=== PATIENT | female | born 2005 | race Caucasian/White ===

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

== ENCOUNTER 2025-08-11 12:49 | Outpatient (CLI) | payer OTHER, SELFPAY ==
--- NOTE | ~2025-08-11 | US_ITS ---
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 Findings: Uterus: Uterus anteverted 7.1 x 3.1 x 5.3 cm. . Endometrium 1 cm. Right Ovary:Right ovary 3.4 x 2.6 x 4.3 cm, no adnexal mass, normal flow. Left Ovary: Left ovary 3.6 x 1.9 x 2.3 cm no adnexal mass, normal flow. Free Fluid: None Impression: Unremarkable exam Reviewed, dictated and finalized at location P. CIL SPRAYER Impression: Unremarkable exam
== END 2025-08-11 12:50 | disposition home or self-care (01) ==
PROVIDERS: Visit Provider Student in an Organized Health Care Education/Training Program
DX: E28.2 Polycystic ovarian syndrome (principal)
CPT/HCPCS: 76830; 76856

== ENCOUNTER 2025-08-17 13:09 | Outpatient (CLI) | payer OTHER, SELFPAY ==
[2025-08-17 14:20] LABS: Thyroid Stimulating Hormone 2.610 uIU/mL (0.465-4.680)
--- OUTSIDE RECORDS SUMMARY | 2025-08-17 14:53 | XMS_ITS | Clinical Summary ---
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 Name Role Phone Tiny Gaytan Primary Care Provider [phone] No, Physician Unavailable Robbie Tanner MD Unavailable [phone] Allergies No known active allergies Medications magnesium oxide 400 mg magnesium tablet Take 400 mg by mouth daily Active dicyclomine (BENTYL) 10 mg capsule Take 1 capsule (10 mg total) by mouth 4 (four) times a day as needed 5 Active ondansetron ODT (ZOFRAN-ODT) 4 mg disintegrating tablet Take 1 tablet (4 mg total) by mouth every 6 (six) hours as needed 4 Active Active Problems Problem Noted Date Diagnosed Date Sleep disorder 09/24/2023 Low ferritin 08/15/2023 Underweight 11/29/2022 Vitamin D deficiency 12/01/2021 Anxiety 11/22/2021 Migraine 11/22/2021 Painful menstruation 11/22/2021 Immunizations Immunization Administration Dates Next Due DTaP 02/24/2009, 5,2004,04/01 HPV, Unspecified 06/14/2018 HPV9 11/16/2021 Hep A, Pediatric 02/12/2007,06/04/2006 Hep B, Adolescent or Pediatric 05/28/2019,2004,2004 Hib (PRP-T) 02/24/2009, 5,2004,04/01 IPV 02/24/2009, 5,2004,04/01 Influenza, Quadrivalent, Spl it, Preservative Free, Intramuscular 06/28/2020 MMR 02/24/2009,01/30/2005 Meningococcal MCV4P (Menactra) 11/16/2021,2015 Pneumococcal Conjugate PCV 13 01/30/2005 ,2004,2004,04/01 Tdap 05/10/2016 Varicella 02/24/2009,04/03/2005 Surgical History Surgery Date Site/Laterality Comments WISDOM TOOTH EXTRACTION 03/27/2024 - 04/26/2024 Medical History Medical History Date Comments Abdominal bloating Family History Medical History Relation Name Comments Arthritis Other 1 Blood Clot Other 1 Cancer Other 1 Diabetes Other 1 Gout Other 1 Heart disease Other 1 Hypertension Other 1 Stroke Other 1 Arthritis Other 2 Cancer Other 2 Gout Other 2 Heart disease Other 2 Hypertension Other 2 Stroke Other 2 Relation Name Status Comments Other 1 Other 2 Social History Tobacco Use Types Packs/Day Years Used Date Smoking Tobacco: Never Smokeless Tobacco: Never Tobacco Cessation:Counseling Given: Not Answered Alcohol Use Standard Drinks/Week Comments Never 0 (1 standard drink = 0.6 oz pur e alcohol) AUDIT-C Answer Date Recorded Q1: How often do you have a drink containing alc ohol? Never 07/15/2020 Average Number of Drinks Not on file 020 Frequency of Binge Drinking Not on file 06/27 Comments Unknown Sex and Gender Information Value Date Recorded Sex Assigned at Not on file Legal Sex Female 1:28 PM CDT Gender Identity Not on file Sexual Orientation Not on file Last Filed Vital Signs Vital Sign Reading Time Taken Comments Blood Pressure 104/58 10/31/2023 3:45 PM PACKER [facility] Pulse 84 10/31/2023 3:45 PM [facility] [employer] Temperature 37.1 C (98.8 F) 10/31/2023 3:45 PM [facility] Respiratory Rate 16 10/31/2023 3:45 PM [facility] Oxygen Saturation 99% 10/31/2023 3:45 PM [facility] Inhaled Oxygen Concentration - - Weight 47.6 kg (105 lb) 10/31/2023 3:45 PM [facility] Height 170.2 cm (5' 7) 10/31/2023 3:45 PM [facility] Body Mass Index 16.45 10/31/2023 3:45 PM P[facility]ER DENTURE Plan of Treatment Health Maintenance Due Date Last Done Comments Cervical Cancer Screening 2004 Depression Screening 2004 Hepatitis C Screening 2004 Meningococcal B Vaccine (1 o f 2 - Standard) 2020 Regular Well Visit/Exam 18-64 01/28/2022 Covid-19 Vaccine (4 - 2024-2 6 season) 2025 08/23/2021, 12/19/2020, 11/27/2020 Influenza Vaccine (#1) 2025 08/14/2023, 2019 DTaP/Tdap/Td Vaccine (6 - Td or Tdap) 05/10/2026 05/10/2016, 02/24/2009, 2004, Additional history exists Pneumococcal vaccine <65 Completed 005, 2004, 2004, Additional history exists Varicella Vaccines Completed 02/24/2009, 04/03/2005 Hepatitis B Screening Completed 05/28/2019 , 2004, 2004 HPV Vaccines Completed 11/16/2021, 06/14/2018 Meningococcal Vaccine Completed 11/16/2021, 016 Insurance [facility] H[facility] [employer] PPO [employer] Care Teams 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
[2025-08-18 07:08] LABS: FSH 3.3 mIU/mL (.)
[2025-08-18 10:49] LABS: Beta HCG Quantitative < 2.39 mIU/ML
[2025-08-19 13:08] LABS: Free Testosterone (Direct) 2.5 pg/mL (0.0-4.2)
[2025-08-23 19:07] LABS: Estradiol, Sensitive 129.4 pg/mL (.)
== END 2025-08-17 13:10 | disposition home or self-care (01) ==
PROVIDERS: Obstetrics & Gynecology; Visit Provider Student in an Organized Health Care Education/Training Program
DX: N91.2 Amenorrhea, unspecified (principal)
CPT/HCPCS: 36415; 82670; 83001; 84144; 84402; 84403; 84443; 84702